=== PATIENT | male | born 1960 | race Caucasian/White ===

== ENCOUNTER 2021-10-14 15:16 | Emergency (ER) | payer OTHER, SELFPAY ==
[2021-10-14 15:17] VITALS: BP 163/98; PULSE 72; RESP 18; TEMP 37.3; O2SAT 97; BMI 32.1
[2021-10-14] MEDS: oxyCODONE 5 MG Tablet PO (15:32)
--- NOTE | 2021-10-14 15:33 | EX.ED.DYSGE1 ---
HPI <SANTINO Barbosa - Last Filed: 10/14/21 16:54> History of Present Illness Chief Complaint: Lower Extremity Injury Narrative Narrative: 61-year-old male with history of multiple sclerosis however is not had a flare in several years presents the emergency department with 1.5 days of right-sided knee pain. Patient denies any injury however states yesterday he was getting ready for work noticed that the knee hurt on the inner aspect. Patient states today it is swollen, can barely put weight on it. He denies any fevers or chills, denies any injury, surgery to this knee. Denies any known trauma, and is here for evaluation. [facility] <SANTINO Barbosa - Last Filed: 10/14/21 16:54> [facility] Medical History (Updated 10/14/21 @ 16:51 by SANTINO aBrbosa) High cholesterol Multiple sclerosis Home Medications baclofen 10 mg PO BREAKFAST 04/21/13 [History Last Taken 04/20/13 08:00 10 MG] baclofen 20 mg PO LUNCH 04/21/13 [History Last Taken 04/20/13 12:00 10 MG] baclofen 20 mg PO QHS 04/21/13 [History Last Taken 04/20/13 22:00 20 MG] Fingolimod Hcl [Gilenya] 0.5 mg PO DAILY 11/09/15 [History Last Taken Unknown] calcium carbonate 600 mg PO BID 11/09/15 [History Last Taken Unknown] multivitamin with folic acid [Multivitamin] 1 tab PO QHS 11/09/15 [History Last Taken Unknown] oxycodone-acetaminophen 1 - 2 tab PO Q4H PRN PRN #30 tab 11/11/15 [Rx Last Taken Unknown] oxycodone-acetaminophen [Percocet] 1 tab PO Q6H PRN 3 Days #10 tab 10/14/21 [Rx Last Taken Unknown] Allergy/AdvReac Type Severity Reaction Status Date / Time Penicillins Allergy Unknown Verified 10/14/21 15:16 TEBINAFINE Allergy Swelling Uncoded 10/14/21 15:16 Social History Smoking Status: Current every day smoker tobacco type: cigarettes ROS <SANTINO Barbosa - Last Filed: 10/14/21 16:54> ROS ED ROS Narrative Constitutional: Negative for fever, chills, weight loss or gain, weakness Eyes: Negative for vision loss, vision change, double vision ENT: Negative for any hearing changes, ringing in the ears, discharge, pain Nose: Negative for any congestion, runny nose, sinus pain, allergies Throat: Negative for any sore throat, swelling, voice changes, Cardiovascular: Negative for any chest pain, tightness, palpitations, racing heartbeat Respiratory: Negative for any cough, sputum production, hemoptysis, shortness of breath, shortness of breath on exertion, Gastrointestinal: Negative for any abdominal pain, nausea, vomiting, diarrhea, constipation, blood in stool, blood in vomit : Negative for any urinary frequency, incontinence, dysuria, retention, blood in urine Muscle skeletal: Negative for any muscle joint pain, stiffness, myalgias, arthralgias, neck pain, back pain. Positive for right knee pain Neurological: Negative for any headache, dizziness, syncope, numbness or tingling Skin: Negative for any rashes, lumps, itching, abrasions, lacerations Psychiatric: Negative for any depression, anxiety, stress, suicidal ideation, homicidal ideation Hematologic: Negative for any easy bruising, excessive bruising, easy bleeding Allergies: Negative for any eczema, hives, rash EXAM <SANTINO Barbosa - Last Filed: 10/14/21 16:54> Physical Exam Const Vital Signs: 10/14/21 15:17 Temperature 99.2 F H Temperature Source Temporal Pulse Rate 72 Respiratory Rate 18 Blood Pressure 163/98 H Blood Pressure Mean 119 Pulse Ox 97 Oxygen Delivery Method Room Air Positive well nourished and well developed General Appearance ED: well developed HEENT Reports TM's clear Negative for trauma or tenderness Tympanic Membrane ED: Yes TM's clear Eyes PERRL and EOMs intact bilaterally Neck no lymphadenopathy and supple Chest Wall inspection of chest normal and palpation of chest normal Resp normal respiratory effort and clear to auscultation bilaterally Cardio regular rate GI normal to inspection, nondistended, normoactive bowel sounds, non-tender and non-distended Palpation: soft Back/Spine no CVA tenderness Extremity Extremity Narrative: Patient does have edema to the right knee, negative for any redness, warm to the touch. Patient does have an intact extensor mechanism, patient does have pain more towards the medial aspect of the knee. General Extremety ED: Yes edema and tenderness General Extremity: edema Neuro oriented x3 and CN's II-XII intact bilaterally Sensorium / Orientation: alert Motor Exam: strength 5/5 throughout Psych mental status grossly normal Skin no rashes or lesions noted Image ED - Body Diagram Man: 1. Right knee edema, pain <Dr. Alejandra Hammond MD - Last Filed: 10/14/21 16:54> Physical Exam Const Vital Signs: 10/14/21 15:17 Temperature 99.2 F H Temperature Source Temporal Pulse Rate 72 Respiratory Rate 18 Blood Pressure 163/98 H Blood Pressure Mean 119 Pulse Ox 97 Oxygen Delivery Method Room Air MDM <SANTINO Barbosa - Last Filed: 10/14/21 16:54> [facility] Narrative Medical decision making narrative: Patient appears well, patient appears nontoxic, vital signs are stable. Patient presents the emergency department with 1 day of right knee pain, swelling. Patient's physical examination is consistent with a knee effusion, no signs or symptoms of deep tissue infection, joint infection. Patient's x-ray did show some soft tissue swelling as well as moderate joint effusion. No acute or healing fracture or malignant findings. Patient does have some arthritis. Patient will follow up with his orthopedist, at [facility]. Patient will be given a prescription for Percocet, patient will be given Cedrick wrap and some days off work. The x-ray was read by the ER physician. At this time, patient instructed to return for any worsening pain, fever chills nausea vomiting. Patient stable for discharge Lab Data Attestation: I reviewed the patient's lab results. Radiography Diagnostic Testing: Clinical Impression(s) from Imaging Studies Knee X-Ray 10/14/21 15:40 IMPRESSION: 1. Soft tissue swelling immediately anterior to the patellar tendon. 2. Moderate joint effusion. 3. No acute or healing fracture or malalignment. 4. Mild degenerative joint space loss involving the medial femorotibial compartment. Electronically Signed: Riley Forte MD at 16:18 EDT , <Dr. Alejandra Hammond MD - Last Filed: 10/14/21 16:54> MDM Radiography Diagnostic Testing: Clinical Impression(s) from Imaging Studies Knee X-Ray 10/14/21 15:40 IMPRESSION: 1. Soft tissue swelling immediately anterior to the patellar tendon. 2. Moderate joint effusion. 3. No acute or healing fracture or malalignment. 4. Mild degenerative joint space loss involving the medial femorotibial compartment. Electronically Signed: Riley Forte MD at 16:18 EDT , Treatment and Re-Evaluation Narrative: Patient seen and evaluated with OTONIEL. I personally interviewed and examined the patient. I was involved in all aspects of patient's orders, interpretation of results, and treatment. Patient presents with 1-1/2 days of right knee pain. He states he woke yesterday morning with pain and swelling. No known injury. No prior surgeries on that knee. Does report history of arthritis in his left knee that he had seen orthopedics for previously. No fever or chills. No skin redness noted. Patient served ambulating to the room with slight antalgic gait. No difficulty with weightbearing. Head and neck examination unremarkable. Heart is regular rate and rhythm. Lung sounds are clear. Abdomen is soft nontender. Right lower extremity reveals mild edema. No erythema or excessive skin warmth. No open wounds. Tenderness along the medial distal aspect of the right knee. He does have slight increased pain with MCL stress. Strong distal pulses are noted. Right knee x-rays per my interpretation number of chronic arthritic changes with soft tissue swelling. No fracture noted. Radiologist interpretation is reviewed. Cedrick wrap is placed and patient be treated with analgesics. Referral to orthopedics for follow-up. Discharge Plan Triage Chief Complaint: Lower Extremity Injury ED Midlevel Provider: Renard Howard ED Provider: Alejandra Hammond Dx/Rx/DC Orders Clinical Impression: Acute knee pain, Acute joint effusion Instructions: ED Bandage Elastic Wrap, ED Arthralgia, ED Knee Effusion Prescriptions: New oxycodone-acetaminophen [Percocet] 5-325 mg tablet 1 tab PO Q6H PRN (Reason: pain) 3 Days Qty: 10 RF: 0 No Action baclofen 20 MG tablet 20 mg PO QHS RF: 0 baclofen 10 MG tablet 10 mg PO BREAKFAST RF: 0 baclofen 10 MG tablet 20 mg PO LUNCH RF: 0 calcium carbonate 600 MG tablet 600 mg PO BID RF: 0 multivitamin with folic acid [Thera] 1 TABLET tablet 1 tab PO QHS RF: 0 Fingolimod Hcl [Gilenya] 0.5 MG capsule 0.5 mg PO DAILY RF: 0 oxycodone-acetaminophen 1 TABLET tablet 1 - 2 tab PO Q4H PRN PRN (Reason: Pain) Qty: 30 RF: 0 Stand Alone Forms: ED Work / School Excuse Primary Care Provider: Hans Farfan Referrals: Hans Farfan MD [Primary Care Provider] - Frank Carpenter DO [STAFF PHYSICIAN] - 3-5 Days if not improving Activity Restrictions/Additional Instructions: Please use the Cedrick wrap, please use pain medicine as needed. Print Language: Setswana Disposition Disposition: Home, Self Care
--- NOTE | 2021-10-14 15:40 | RAD_ITS ---
EXAM: XR RIGHT KNEE, 3 VIEWS CLINICAL INDICATION: knee pain TECHNIQUE: Three views of the right knee. This report was created using [employer] report generation technology. COMPARISON: None. FINDINGS: See Impression. RAD/Knee 4 or More Views IMPRESSION: 1. Soft tissue swelling immediately anterior to the patellar tendon. 2. Moderate joint effusion. 3. No acute or healing fracture or malalignment. 4. Mild degenerative joint space loss involving the medial femorotibial compartment. Electronically Signed: Riley Forte MD at 16:18 EDT ,
[2021-10-14 17:05] VITALS: BP 178/94; PULSE 79; RESP 16; O2SAT 97
== END 2021-10-14 17:08 | disposition home or self-care (01) ==
PROVIDERS: Emergency Provider Emergency Medicine; PCP Family Medicine; Visit Provider Emergency Medicine
DX: M25.561 Pain in right knee (principal); M25.461 Effusion, right knee; F17.210 Nicotine dependence, cigarettes, uncomplicated
CPT/HCPCS: 73564; 99283

== ENCOUNTER → 2021-11-18 | Outpatient (CLI) | payer OTHER, SELFPAY ==
[2021-11-18 08:30] LABS: Erythrocyte Sedimentation Rate 6 mm/hr (0-20)
[2021-11-18 08:33] LABS: Absolute Lymphocyte Count 0.22 X10^3/uL (0.83-4.51); Absolute Neutrophil Count 1.8 X10^3/uL (2.0-7.7); Basophil# 0.01 X10^3/uL; Basophil% 0.4 % (0-1); Eosinophil# 0.18 X10^3/uL; Eosinophils% 7.1 % (0-5); Hematocrit 45.1 % (40-54); Hemoglobin 15.1 g/dL (13.0-16.5); Lymphocyte # 0.22 X10^3/ul (0.83-4.51); Lymphocyte % 8.7 % (19-41); Mean Corp Hgb Conc 33.5 g/dL (32-36); Mean Corpuscular Hgb 29.5 pg (27.0-32.0); Mean Corpuscular Volume 88.1 fL (80-94); Mean Platelet Vol. 9.4 fl (6.2-12.0); Monocyte# 0.29 X10^3/uL; Monocyte% 11.5 % (0-10); NRBC Flagged by Analyzer 0 % (0-5); Neutrophil # 1.81 X10^3/uL (2.7-7.7); Neutrophil % 71.9 % (47-70); POSITIVE DIFFERENTIAL YES; Platelet Count 155 K/mm3 (150-450); RBC Distribution Width CV 12.9 % (11.6-14.6); RBC Distribution Width SD 41.9 fl (35.1-43.9); Red Blood Count 5.12 M/mm3 (4.6-6.2); White Blood Count 2.5 K/mm3 (4.4-11.0)
[2021-11-18 08:52] LABS: CRP < 2.90 mg/L (0.0-3.0)
[2021-11-18 08:53] LABS: Differential Indicated SCAN CRITERIA MET
[2021-11-18 08:54] LABS: Differential Comment SCANNED
[2021-11-20 13:21] LABS: Pathologist Review Reviewed
== END | disposition home or self-care (01) ==
LOC: LAB 07:59
PROVIDERS: PCP Family Medicine; Referring Provider Physician Assistant Surgical; Visit Provider Physician Assistant Surgical
DX: M17.11 Unilateral primary osteoarthritis, right knee (principal); Z96.652 Presence of left artificial knee joint
CPT/HCPCS: 36415; 85025; 85652; 86140